=== PATIENT | male | born 2000 | race Caucasian/White ===

== ENCOUNTER 2023-10-12 09:20 | Emergency (ER) | payer OTHER ==
[~2023-10-12] VITALS: Ht 175.3 cm; Wt 86.1 kg
[2023-10-12] MEDS ORDERED: NAPR-837 PO (10:33)
[2023-10-12] MEDS ORDERED: CYCL5TAB PO (10:34)
[2023-10-12] MEDS ORDERED: MEDR4PAK PO (10:34)
[2023-10-12] MEDS ORDERED: KETOROLAC 30 MG/ML 1ML VIAL IM ONE (10:35)
[2023-10-12 11:13] VITALS: BP 158/93; TEMP 98.3; O2SAT 98
== END 2023-10-12 11:10 | disposition home or self-care (01) ==
LOC: M ED 09:20
DX: M54.2 Cervicalgia (principal)
CPT/HCPCS: 96372; 99283; J1885

== ENCOUNTER 2024-05-17 10:23 | Emergency (ER) | payer OTHER ==
[~2024-05-17] VITALS: Ht 180.3 cm; Wt 84.2 kg
[~2024-05-17 10:23] MED LIST: CYCL5TAB PO; MEDR4PAK PO; NAPR-837 PO
[2024-05-17 12:27] LABS: HEMATOCRIT 46.4 % (42.0-52.0); HEMOGLOBIN 16.1 g/dl (13.5-17.5); MEAN CORPUSCULAR HEMOGLOBIN 30.7 pg (27.0-33.0); MEAN CORPUSCULAR HGB CONC 34.7 g/dl (32.0-36.5); MEAN CORPUSCULAR VOLUME 88.5 fl (80.0-96.0); PLATELET COUNT, AUTOMATED 215 10^3/uL (150-450); RED BLOOD COUNT 5.24 10^6/uL (4.30-6.10)
[2024-05-17 12:50] LABS: ETHYL ALCOHOL (ETHANOL) < 0.003 % (0.000-0.010)
[2024-05-17 12:51] LABS: ALBUMIN 4.8 G/DL (3.2-5.2); ALKALINE PHOSPHATASE 90 U/L (46-116); ALT/SGPT 27 U/L (7.0-40); AST/SGOT < 8 U/L (<34); BILIRUBIN,DIRECT 0.3 MG/DL (<0.4); BLOOD UREA NITROGEN 8 MG/DL (9-23); CALCIUM LEVEL 9.8 MG/DL (8.5-10.1); CARBON DIOXIDE LEVEL 26 MMOL/L (20-31); CHLORIDE LEVEL 106 MMOL/L (98-107); CREATININE FOR GFR 0.69 MG/DL (0.70-1.30); GLOMERULAR FILTRATION RATE > 60.0 (>60); GLUCOSE, FASTING 97 MG/DL (60-100); SALICYLATE LEVEL < 3.0 MG/DL (<30); SODIUM LEVEL 136 MMOL/L (136-145); TOTAL PROTEIN 7.7 G/DL (5.7-8.2)
[2024-05-17 12:55] LABS: THYROID STIMULATING HORMONE 1.532 uIU/ML (0.55-4.78)
[2024-05-17 13:00] LABS: AMPHETAMINES LEVEL URINE NEGATIVE (NEGATIVE); BARBITURATES URINE NEGATIVE (NEGATIVE); BENZODIAZEPINES URINE NEGATIVE (NEGATIVE); COCAINE METABOLITE URINE NEGATIVE (NEGATIVE); METHADONE URINE NEGATIVE (NEGATIVE); OPIATES URINE NEGATIVE (NEGATIVE); PHENCYCLIDINE URINE NEGATIVE (NEGATIVE)
[2024-05-17 13:01] LABS: CANNABINOIDS URINE POSITIVE (NEGATIVE)
[2024-05-17] MEDS ORDERED: HOME MED LIST COMPLETE! XX SCH (13:10)
[2024-05-17 14:55] VITALS: BP 133/84; TEMP 97.9; O2SAT 98
== END 2024-05-17 15:09 | disposition home or self-care (01) ==
LOC: M ED 10:23
DX: F43.21 Adjustment disorder with depressed mood (principal); F17.290 Nicotine dependence, other tobacco product, uncomplicated